=== PATIENT | female | born 1965 | race Caucasian/White ===

== ENCOUNTER 2016-12-26 08:58 | Day surgery (SDC) | payer BC ==
[~2016-12-26] VITALS: Ht 188 cm; Wt 117.3 kg
[2016-12-26 09:22] VITALS: BP 118/75; PULSE 58; TEMP 97.1
[2016-12-26 10:30] VITALS: BP 116/91; PULSE 65; TEMP 97.1
[2016-12-26 10:45] VITALS: BP 121/70; PULSE 68
== END 2016-12-26 11:00 | disposition home or self-care (01) ==
LOC: SDCO 08:58
DX: Z12.11 Encounter for screening for malignant neoplasm of colon (principal)
CPT/HCPCS: J2250; J2405; J3010; J7030

== ENCOUNTER → 2018-05-20 | Outpatient (CLI) | payer BC | LOC: MC.RAD 15:00 | DX: Z12.31 Encounter for screening mammogram for malignant neoplasm of breast (principal) ==

== ENCOUNTER → 2019-07-27 | Outpatient (CLI) | payer BC | LOC: MC.RAD 06-27 11:15 | DX: Z12.31 Encounter for screening mammogram for malignant neoplasm of breast (principal) ==

== ENCOUNTER → 2020-09-11 | Outpatient (CLI) | payer BC | LOC: MC.RAD 11:39 | DX: Z12.31 Encounter for screening mammogram for malignant neoplasm of breast (principal) ==

== ENCOUNTER → 2022-05-22 | Outpatient (CLI) | payer BC | LOC: MC.RAD 08:47 | DX: Z12.31 Encounter for screening mammogram for malignant neoplasm of breast (principal) ==

== ENCOUNTER → 2022-12-30 | Outpatient (RCR) | payer BC | END | disposition home or self-care (01) | LOC: WSST | DX: R13.12 Dysphagia, oropharyngeal phase (principal) ==

== ENCOUNTER → 2023-01-13 | Outpatient (CLI) | payer BC | LOC: COL.RAD 13:53 | DX: R13.12 Dysphagia, oropharyngeal phase (principal) ==

== ENCOUNTER 2023-02-03 15:12 | Outpatient (RCR) | payer BC | END 2023-03-01 | disposition home or self-care (01) | LOC: WSST | DX: R13.12 Dysphagia, oropharyngeal phase (principal); R49.0 Dysphonia ==

== ENCOUNTER → 2023-11-09 | Outpatient (CLI) | payer BC | LOC: MC.RAD 10:35 | DX: Z12.31 Encounter for screening mammogram for malignant neoplasm of breast (principal) ==